=== PATIENT | male | born 2000 | race American Indian/Alaskan Native ===

== ENCOUNTER 2021-06-19 11:27 | Emergency (ER) | payer SELFPAY ==
[2021-06-19 11:54] VITALS: BP 144/81
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
--- NOTE | 2021-06-19 13:05 | Vascular Lab Report ---
VL venous duplex LE RT INDICATION / CLINICAL INFORMATION: pain. TECHNIQUE: Duplex doppler imaging was performed using venous compression and other maneuvers. COMPARISON: None available. FINDINGS: No venous thrombosis is identified within the visualized extremity vasculature. ADDITIONAL FINDINGS: None. IMPRESSION: 1. No sonographic evidence for DVT in the visualized right lower extremity vasculature. Signer Name: Ethan Hagen MD Signed: 06/19/2021 1:00 PM Workstation Name: [id number]
--- NOTE | 2021-06-20 08:49 | Electrocardiograph Report ---
[facility] Test Date: 2021-06-19 Test Time: 11:56:32 Pat Name: JAZ JONES Department: Room: Gender: M [employer] Technician: TV : 2000 Requested By: RICHI BESS Order Number: [id number] Reading MD: Mckay Yousif Measurements Intervals [place] Rate: 126 P: 61 NV: 166 QRS: 67 QRSD: 71 T: -15 QT: 293 QTc: 425 Interpretive Statements Sinus tachycardia Probable left atrial enlargement No previous ECG available for comparison Electronically Signed On 06-20-2021 8:48:56 EST by Mckay Yousif
== END 2021-06-19 14:21 | disposition home or self-care (01) ==
LOC: ED 11:27
DX: M79.604 Pain in right leg (principal)
CPT/HCPCS: 93005; 93010; 99283

== ENCOUNTER 2021-08-14 02:53 | Inpatient (IN) | payer SELFPAY ==
[2021-08-14] MEDS ORDERED: MORPHINE 4 MG/1 ML INJ IV ONE (02:58)
[2021-08-14] MEDS ORDERED: ONDANSETRON 4 MG/2 ML INJ IV ONE (02:59)
[2021-08-14 03:25] LABS: Mean Corpuscular HGB Conc 31 % (32-34); Mean Corpuscular Volume 78 fl (84-94); Platelet Count 387 K/mm3 (140-440); Red Blood Count 6.63 M/mm3 (3.65-5.03); Red Cell Distribution Width 13.5 % (13.2-15.2)
--- NOTE | 2021-08-14 03:47 | Cat Scan Report ---
CT ABDOMEN AND PELVIS WITHOUT CONTRAST INDICATION / CLINICAL INFORMATION: Abdominal pain. TECHNIQUE: All CT scans at this location are performed using CT dose reduction for ALARA by means of automated exposure control. COMPARISON: None available. FINDINGS: ABDOMEN: There is a dilated small bowel loop in the lower abdomen/upper pelvis. There is inflammation in the peritoneal fat in the lower abdomen and upper pelvis. I see no evidence of free air. The liver, spleen, gallbladder, bile ducts, pancreas, adrenal glands and kidneys are normal. No adeno heriberto is present. The lung bases are clear. PELVIS: The appendix is dilated and thick-walled measuring approximately 11 mm transverse. There is i ncreased intraluminal fluid. There is moderate soft tissue stranding in the periappendiceal fat with more diffuse inflammation in the surrounding peritoneal fat extending superiorly and anteriorly. Ther e is mild bowel wall thickening involving the base of the cecum. The terminal ileum is normal. I do n ot identify an abscess, appendicolith or extraluminal gas. The distal ureters, urinary bladder, prostate gland and seminal vesicles are normal. There is no evid ence of diverticulitis. No abnormal mass or fluid collection is seen. I do not identify a hernia. No acute osseous abnormality is present. IMPRESSION: 1. Moderate acute appendicitis without abscess. 2. Solitary dilated small bowel loop in the lower abdomen/upper pelvis is likely related to a localiz ed adynamic ileus. Signer Name: Tereso Butts MD Signed: 08/14/2021 3:42 AM Workstation Name: [id number]
[2021-08-14 03:49] LABS: Alanine Aminotransferase 19 units/L (7-56); Albumin 4.6 g/dL (3.9-5); BUN/Creatinine Ratio 14; Blood Urea Nitrogen 11 mg/dL (9-20); Hemolysis Index 34
[2021-08-14 03:50] LABS: Hematocrit 51.7 % (35.5-45.6); Hemoglobin 16.2 gm/dl (11.8-15.2)
[2021-08-14 04:12] LABS: RBC,Urine < 1.0 /HPF (0.0-6.0)
[2021-08-14 04:19] LABS: Bilirubin,Urine NEG (Negative); Color,Urine Colorless (Yellow)
[2021-08-14 04:20] LABS: Blood,Urine NEG (Negative); Protein,Urine <15 mg/dL mg/dL (Negative); Urobilinogen,Urine < 2.0 mg/dL (<2.0)
[2021-08-14] MEDS ORDERED: INSULIN REGULAR, HUMAN 100 UNITS/1 ML IV ONE (04:39)
[2021-08-14 05:08] LABS: Basophils % (Manual) 0 % (0.0-1.8); Hypochromasia 1+; Total Cells Counted 100
[2021-08-14 05:09] LABS: RBC Morphology Normal
[2021-08-14 05:10] LABS: Platelet Estimate Consistent w Auto
[2021-08-14] MEDS ORDERED: SODIUM CHLORIDE 0.9% 1000 ML 1,000 ML IV ONE (05:46)
[2021-08-14] MEDS ORDERED: DEXTROSE 50% IN WATER (25GM) 50 ML SYRINGE IV PRN ×3 (05:46→10:56)
[2021-08-14] MEDS ORDERED: INSULIN REGULAR, HUMAN 100 UNITS in SODIUM CHLORIDE 0.9% 99 ML IV SCH ×2 (06:00→07:00)
[2021-08-14] MEDS ORDERED: DEXTROSE 10% *Hypoglycemia IV PRN (06:00)
[2021-08-14] MEDS ORDERED: MORPHINE 2 MG/1 ML INJ IV PRN (06:09)
[2021-08-14] MEDS ORDERED: ONDANSETRON 4 MG/2 ML INJ IV PRN (06:09)
[2021-08-14] MEDS ORDERED: ALBUTEROL 2.5 MG/3 ML NEBU IH PRN (06:09)
[2021-08-14] MEDS ORDERED: ACETAMINOPHEN 325 MG TAB PO PRN (06:09)
--- NOTE | 2021-08-14 06:18 | History and Physical Report ---
History of Present Illness Date of examination: 08/14/21 Date of admission: 08/14/21 Chief complaint: Abdominal pain Nausea vomiting History of present illness: 20 years old male with history of diabetes was brought to the emergency room because of abdominal pain as stated with nausea and vomiting for the last 1 day as patient ran out of the medication for a month and a half. In the ER patient is found to have DKA. Patient blood glucose is 665. Anion gap 27 CO2 20 also patient WBC is 22.1. CT scan of the abdomen shows moderate acute appendicitis without abscess. Solitary dilated small bowel loops in the lower abdomen/upper pelvis is likely related to a localized adynamic ileus. Subsequently Case discussed with surgery. so we are going to admit the patient to the ICU. we will put the patient on insulin , IV fluid and consult surgery and critical care for further evaluation and management. Past History Past Medical History: diabetes Past Surgical History: No surgical history Family history: diabetes Medications and Allergies Allergies Allergy/AdvReac Type Severity Reaction Status Date / Time No Known Allergies Allergy Verified 06/19/21 11:54 Home Medications Medication Instructions Recorded Confirmed Last Taken Type Ibuprofen [Motrin] 600 mg PO Q8H PRN #30 tablet 06/19/21 Unknown Rx Active Meds: Active Medications Acetaminophen (Acetaminophen 325 Mg Tab) 650 mg PO Q4H PRN PRN Reason: Pain MILD(1-3)/Fever >100.5/GOMES Albuterol (Albuterol 2.5 Mg/3 Ml Nebu) 2.5 mg IH Q3HRT PRN PRN Reason: Shortness Of Breath Albuterol/Ipratropium (Ipratropium/Albuterol Sulfate 3 Ml Ampul.Neb) 1 ampul IH Q6HRT JAIME Dextrose (Dextrose 10% *Hypoglycemia) 0 ml IV DIRECT PRN; Protocol PRN Reason: Hypoglycemia Dextrose (Dextrose 50% In Water (25gm) 50 Ml Syringe) 0 ml IV Q30MIN PRN; Protocol PRN Reason: Hypoglycemia Insulin Human Regular 100 (units/ Sodium Chloride) 100 mls @ 1 mls/hr IV TITR JAIME; Protocol Sodium Chloride (Nacl 0.9% 1000 Ml) 1,000 mls @ 999 mls/hr IV BOLUS ONE Stop: 08/14/21 06:46 Insulin Human Regular 100 (units/ Sodium Chloride) 100 mls @ 1 mls/hr IV TITR JAIME; Protocol Ondansetron HCl (Ondansetron 4 Mg/2 Ml Inj) 4 mg IV Q8H PRN PRN Reason: Nausea And Vomiting Sodium Chloride (Sodium Chloride 0.9% 10 Ml Flush Syringe) 10 ml IV BID JAIME Sodium Chloride (Sodium Chloride 0.9% 10 Ml Flush Syringe) 10 ml IV PRN PRN PRN Reason: LINE FLUSH Review of Systems All systems: negative Gastrointestinal: abdominal pain, nausea, vomiting Exam - Constitutional Vitals: Temp Pulse Resp BP Pulse Ox 97.5 F L 146 H 16 107/75 99 08/14/21 03:14 08/14/21 03:14 08/14/21 03:14 08/14/21 03:14 08/14/21 03:14 General appearance: Present: mild distress - EENT Eyes: Present: PERRL ENT: hearing intact, clear oral mucosa - Neck Neck: Present: supple, normal ROM - Respiratory Respiratory effort: normal Respiratory: bilateral: diminished - Cardiovascular Heart Sounds: Present: S1 & S2. Absent: rub, click - Extremities Extremities: pulses symmetrical, No edema Peripheral Pulses: within normal limits - Abdominal General gastrointestinal: Present: soft, non-tender, non-distended, normal bowel sounds Male genitourinary: Present: normal - Integumentary Integumentary: Present: clear, warm, dry - Musculoskeletal Musculoskeletal: gait normal, strength equal bilaterally - Psychiatric Psychiatric: appropriate mood/affect, intact judgment & insight - Neurologic Neurologic: CNII-XII intact, moves all extremities Results - Labs CBC & Chem 7: 08/14/21 03:11 08/14/21 05:54 Labs: Laboratory Last Values WBC 22.1 K/mm3 (4.5-11.0) H 08/14/21 03:11 RBC 6.63 M/mm3 (3.65-5.03) H 08/14/21 03:11 Hgb 16.2 gm/dl (11.8-15.2) H 08/14/21 03:11 Hct 51.7 % (35.5-45.6) H 08/14/21 03:11 MCV 78 fl (84-94) L 08/14/21 03:11 MCH 24 pg (28-32) L 08/14/21 03:11 MCHC 31 % (32-34) L 08/14/21 03:11 RDW 13.5 % (13.2-15.2) 08/14/21 03:11 Plt Count 387 K/mm3 (140-440) 08/14/21 03:11 Add Manual Diff Complete 08/14/21 03:11 Total Counted 100 08/14/21 03:11 Seg Neuts % (Manual) 82.0 % (40.0-70.0) H 08/14/21 03:11 Band Neutrophils % 0 % 08/14/21 03:11 Lymphocytes % (Manual) 10.0 % (13.4-35.0) L 08/14/21 03:11 Reactive Lymphs % (Man) 0 % 08/14/21 03:11 Monocytes % (Manual) 7.0 % (0.0-7.3) 08/14/21 03:11 Eosinophils % (Manual) 1.0 % (0.0-4.3) 08/14/21 03:11 Basophils % (Manual) 0 % (0.0-1.8) 08/14/21 03:11 Metamyelocytes % 0 % 08/14/21 03:11 Myelocytes % 0 % 08/14/21 03:11 Promyelocytes % 0 % 08/14/21 03:11 Blast Cells % 0 % 08/14/21 03:11 Nucleated RBC % Not Reportable 08/14/21 03:11 Seg Neutrophils # Man 18.1 K/mm3 (1.8-7.7) H 08/14/21 03:11 Band Neutrophils # 0.0 K/mm3 08/14/21 03:11 Lymphocytes # (Manual) 2.2 K/mm3 (1.2-5.4) 08/14/21 03:11 Abs React Lymphs (Man) 0.0 K/mm3 08/14/21 03:11 Monocytes # (Manual) 1.5 K/mm3 (0.0-0.8) H 08/14/21 03:11 Eosinophils # (Manual) 0.2 K/mm3 (0.0-0.4) 08/14/21 03:11 Basophils # (Manual) 0.0 K/mm3 (0.0-0.1) 08/14/21 03:11 Metamyelocytes # 0.0 K/mm3 08/14/21 03:11 Myelocytes # 0.0 K/mm3 08/14/21 03:11 Promyelocytes # 0.0 K/mm3 08/14/21 03:11 Blast Cells # 0.0 K/mm3 08/14/21 03:11 WBC Morphology Not Reportable 08/14/21 03:11 Hypersegmented Neuts Not Reportable 08/14/21 03:11 Hyposegmented Neuts Not Reportable 08/14/21 03:11 Hypogranular Neuts Not Reportable 08/14/21 03:11 Smudge Cells Not Reportable 08/14/21 03:11 Toxic Granulation Not Reportable 08/14/21 03:11 Toxic Vacuolation Not Reportable 08/14/21 03:11 Dohle Bodies Not Reportable 08/14/21 03:11 Pelger-Huet Anomaly Not Reportable 08/14/21 03:11 Dario Rods Not Reportable 08/14/21 03:11 Platelet Estimate Consistent w auto 08/14/21 03:11 Clumped Platelets Not Reportable 08/14/21 03:11 Plt Clumps, EDTA Not Reportable 08/14/21 03:11 Large Platelets Not Reportable 08/14/21 03:11 Giant Platelets Not Reportable 08/14/21 03:11 Platelet Satelliting Not Reportable 08/14/21 03:11 Plt Morphology Comment Not Reportable 08/14/21 03:11 RBC Morphology Normal 08/14/21 03:11 Dimorphic RBCs Not Reportable 08/14/21 03:11 Polychromasia Not Reportable 08/14/21 03:11 Hypochromasia 1+ 08/14/21 03:11 Poikilocytosis Not Reportable 08/14/21 03:11 Anisocytosis Not Reportable 08/14/21 03:11 Microcytosis Not Reportable 08/14/21 03:11 Macrocytosis Not Reportable 08/14/21 03:11 Spherocytes Not Reportable 08/14/21 03:11 Pappenheimer Bodies Not Reportable 08/14/21 03:11 Sickle Cells Not Reportable 08/14/21 03:11 Target Cells Not Reportable 08/14/21 03:11 Tear Drop Cells Not Reportable 08/14/21 03:11 Ovalocytes Not Reportable 08/14/21 03:11 Helmet Cells Not Reportable 08/14/21 03:11 [place] Bodies Not Reportable 08/14/21 03:11 [place] Rings Not Reportable 08/14/21 03:11 [place] Cells Not Reportable 08/14/21 03:11 Bite Cells Not Reportable 08/14/21 03:11 Crenated Cell Not Reportable 08/14/21 03:11 Elliptocytes Not Reportable 08/14/21 03:11 Acanthocytes (Spur) Not Reportable 08/14/21 03:11 Rouleaux Not Reportable 08/14/21 03:11 Hemoglobin C Crystals Not Reportable 08/14/21 03:11 Schistocytes Not Reportable 08/14/21 03:11 Malaria parasites Not Reportable 08/14/21 03:11 Anton Bodies Not Reportable 08/14/21 03:11 Hem Pathologist Commnt No 08/14/21 03:11 VBG pH 7.215 (7.320-7.420) L 08/14/21 04:48 Sodium 131 mmol/L (137-145) L 08/14/21 03:11 Potassium 4.0 mmol/L (3.6-5.0) 08/14/21 03:11 Chloride 88.3 mmol/L (98-107) L 08/14/21 03:11 Carbon Dioxide 20 mmol/L (22-30) L 08/14/21 03:11 Anion Gap 27 mmol/L 08/14/21 03:11 BUN 11 mg/dL (9-20) 08/14/21 03:11 Creatinine 0.8 mg/dL (0.8-1.3) 08/14/21 03:11 Estimated GFR > 60 ml/min 08/14/21 03:11 BUN/Creatinine Ratio 14 % 08/14/21 03:11 Glucose 665 mg/dL (75-100) H* 08/14/21 03:11 Calcium 10.0 mg/dL (8.4-10.2) 08/14/21 03:11 Total Bilirubin 0.70 mg/dL (0.1-1.2) 08/14/21 03:11 AST 10 units/L (5-40) 08/14/21 03:11 ALT 19 units/L (7-56) 08/14/21 03:11 Alkaline Phosphatase 96 units/L (35-129) 08/14/21 03:11 Total Protein 8.0 g/dL (6.3-8.2) 08/14/21 03:11 Albumin 4.6 g/dL (3.9-5) 08/14/21 03:11 Albumin/Globulin Ratio 1.4 % 08/14/21 03:11 Urine Color Colorless (Yellow) 08/14/21 Unknown Urine Turbidity Clear (Clear) 08/14/21 Unknown Urine pH 6.0 (5.0-7.0) 08/14/21 Unknown Ur Specific [place] 1.010 (1.003-1.030) 08/14/21 Unknown Urine Protein <15 mg/dl mg/dL (Negative) 08/14/21 Unknown Urine Glucose (UA) Trace mg/dL (Negative) 08/14/21 Unknown Urine Ketones Trace mg/dL (Negative) 08/14/21 Unknown Urine Blood Neg (Negative) 08/14/21 Unknown Urine Nitrite Neg (Negative) 08/14/21 Unknown Ur Reducing Substances Not Reportable 08/14/21 Unknown Urine Bilirubin Neg (Negative) 08/14/21 Unknown Urine Ictotest Not Reportable 08/14/21 Unknown Urine Urobilinogen < 2.0 mg/dL (<2.0) 08/14/21 Unknown Ur Leukocyte Esterase Neg (Negative) 08/14/21 Unknown Urine WBC (Auto) 1.0 /HPF (0.0-6.0) 08/14/21 Unknown Urine RBC (Auto) < 1.0 /HPF (0.0-6.0) 08/14/21 Unknown U Epithel Cells (Auto) < 1.0 /HPF (0-13.0) 08/14/21 Unknown - Imaging and Cardiology CT scan - abdomen: report reviewed Assessment and Plan VTE prophylaxis?: Chemical Plan of care discussed with patient/family: Yes - Patient Problems (1) Diabetic ketoacidosis Status: Acute Plan to address problem: Admit the patient to the ICU. Half-normal saline at the rate of 125 cc/h. Insulin drip as per protocol. Serial BMP. Reconsult critical care evaluation. Recheck BMP in the morning. Diabetic education (2) Appendicitis Status: Acute Plan to address problem: NPO. Half-normal saline at the rate of 125 cc/h. Zosyn 4.5 g IV every 8 hours. Metronidazole 500 mg IV every 8 hours. Will consult surgery for evaluation. Recheck CBC BMP in the morning (3) Ileus Status: Acute Plan to address problem: NPO. Half-normal saline at the rate of 125 cc/h. Zosyn 4.5 g IV every 8 hours. Will consult surgery for evaluation. Recheck CBC BMP in the morning (4) Diabetes Status: Acute Plan to address problem: Patient is on IV fluid, insulin drip as per protocol. Reconsult diabetic education. (5) Leukocytosis Status: Acute Plan to address problem: Zosyn 4.5 g IV every 8 hours. Metronidazole 500 mg IV every 8 hours. will consult surgery for evaluation. Recheck CBC BMP in the morning (6) DVT prophylaxis Status: Acute Plan to address problem: Heparin 5000 units subcu every 12 hours for DVT prophylaxis. Pepcid 20 mg IV every 12 hours for GI prophylaxis. Patient is a full code.
[2021-08-14 06:24] LABS: Blood Urea Nitrogen 10 mg/dL (9-20); Calcium 9.6 mg/dL (8.4-10.2); Hemolysis Index 9
[2021-08-14 06:25] LABS: BUN/Creatinine Ratio 17
--- NOTE | 2021-08-14 06:33 | Emergency Department Report ---
ED General Adult HPI - General Chief complaint: Abdominal Pain Stated complaint: SEVERE ABD PAIN Time Seen by Provider: 08/14/21 05:46 Source: patient Mode of arrival: Ambulatory Limitations: No Limitations - History of Present Illness Initial comments: 20-year-old [place] male with a history of insulin-dependent diabetes who has been out of his medication for the last month to month and half presents emerge department complaining of 1 day history of evolving nausea with occasional vomiting and mid abdominal pain that radiates across the lower abdomen. Reports no hemoptysis symptoms hematochezia, dysuria no hematuria no fever, chills, sweats. Does experience some lightheadedness and weakness. -: Gradual Severity scale (0 -10): 6 Improves with: none Worsens with: movement - Related Data Previous Rx's Medication Instructions Recorded Last Taken Type Ibuprofen [Motrin] 600 mg PO Q8H PRN #30 tablet 06/19/21 Unknown Rx Allergies Allergy/AdvReac Type Severity Reaction Status Date / Time No Known Allergies Allergy Verified 06/19/21 11:54 ED Review of Systems ROS: Stated complaint: SEVERE ABD PAIN Other details as noted in HPI Comment: All other systems reviewed and negative ED Past Medical Hx - Past Medical History Hx Diabetes: Yes - Medications Home Medications: Home Medications Medication Instructions Recorded Confirmed Last Taken Type Ibuprofen [Motrin] 600 mg PO Q8H PRN #30 tablet 06/19/21 Unknown Rx ED Physical Exam - General Limitations: No Limitations General appearance: alert, lethargic - Head Head exam: Present: atraumatic, normocephalic - Eye Eye exam: Present: normal appearance, PERRL, EOMI - ENT ENT exam: Present: mucous membranes moist - Neck Neck exam: Present: normal inspection - Respiratory Respiratory exam: Present: normal lung sounds bilaterally. Absent: respiratory distress - Cardiovascular Cardiovascular Exam: Present: regular rate, normal rhythm. Absent: systolic murmur, diastolic murmur, rubs, gallop - GI/Abdominal GI/Abdominal exam: Present: soft, tenderness, normal bowel sounds, other (Tenderness to left lower quadrant and). Absent: guarding, rebound - Rectal Rectal exam: Present: deferred - Extremities Exam Extremities exam: Present: normal inspection, normal capillary refill - Back Exam Back exam: Present: normal inspection. Absent: CVA tenderness (R), CVA tenderness (L) - Neurological Exam Neurological exam: Present: alert, oriented X3, CN II-XII intact, normal gait - Psychiatric Psychiatric exam: Present: normal affect, normal mood - Skin Skin exam: Present: warm, dry, intact, normal color. Absent: rash, cyanosis, erythema, urticaria ED Course Vital Signs 08/14/21 03:14 Temperature 97.5 F L Pulse Rate 146 H Respiratory 16 Rate Blood Pressure 107/75 O2 Sat by Pulse 99 Oximetry ED Medical Decision Making - Lab Data Result diagrams: 08/14/21 03:11 08/14/21 05:54 - Radiology Data Radiology results: report reviewed [facility] [address] [place] [address] Cat Scan Report Signed Patient: JAZ GARCIA MR#: [id number] 37 : 2000 Acct:[id number] Age/Sex: 20 / M ADM Date: 08/14/21 Loc: ED Attending Dr: Ordering Physician: PILAR MORALES MD Date of Service: 08/14/21 Procedure(s): CT abdomen pelvis wo con Accession Number(s): [id number] cc: ED MD CARMEN CT ABDOMEN AND PELVIS WITHOUT CONTRAST INDICATION / CLINICAL INFORMATION: Abdominal pain. TECHNIQUE: All CT scans at this location are performed using CT dose reduction for ALARA by means of automated exposure control. COMPARISON: None available. FINDINGS: ABDOMEN: There is a dilated small bowel loop in the lower abdomen/upper pelvis. There is inflammation in the peritoneal fat in the lower abdomen and upper pelvis. I see no evidence of free air. The liver, spleen, gallbladder, bile ducts, pancreas, adrenal glands and kidneys are normal. No adenopathy is present. The lung bases are clear. PELVIS: The appendix is dilated and thick-walled measuring approximately 11 mm transverse. There is increased intraluminal fluid. There is moderate soft tissue stranding in the periappendiceal fat with more diffuse inflammation in the surrounding peritoneal fat extending superiorly and anteriorly. There is mild bowel wall thickening involving the base of the cecum. The terminal ileum is normal. I do not identify an abscess, appendicolith or extraluminal gas. The distal ureters, urinary bladder, prostate gland and seminal vesicles are normal. There is no evidence of diverticulitis. No abnormal mass or fluid collection is seen. I do not identify a hernia. No acute osseous abnormality is present. IMPRESSION: 1. Moderate acute appendicitis without abscess. 2. Solitary dilated small bowel loop in the lower abdomen/upper pelvis is likely related to a localized adynamic ileus. Signer Name: Tereso Butts MD Signed: 08/14/2021 3:42 AM Workstation Name: [id number] Transcribed By: RT Dictated By: Tereso Butts MD Electronically Authenticated By: Tereso Butts MD Signed Date/Time: 08/14/21341 DD/ 5 TD/TT: Print - Medical Decision Making 20-year-old male with insulin-dependent diabetes who has been out of his medication for the last month and a half presents emergency department complaining of nausea vomiting abdominal pain found to be in DKA with blood sug ar of 600+ he was started on insulin bolus followed by an insulin drip potassium was and normal range.. Also he was experiencing some issues with abdominal pain and CT scan did reveal a moderate appendicitis. Case was discussed with the general surgeon Dr. Monterroso who advised the plan to attempt to treat medically given his DKA history and need for admission to the ICU. We will start him on Zosyn and Flagyl if available as there was a Flagyl shortage at this present time. Case was discussed with hospitalist whom is aware of the of the findings of DKA and an appendicitis and will admit Mr. Garcia in consult with general surgeon Critical care attestation.: If time is entered above; I have spent that time in minutes in the direct care of this critically ill patient, excluding procedure time. ED Disposition Clinical Impression: Appendicitis, acute, DKA (diabetic ketoacidosis) Disposition: 09 ADMITTED INPATIENT Is pt being admited?: Yes Does the pt Need Aspirin: No Condition: Stable Instructions: Diabetic Ketoacidosis (ED)
[2021-08-14] MEDS ORDERED: D5W/0.45% NACL/KCL 20 MEQ 20 MEQ/1,000 ML BAG IV SCH (07:00)
[2021-08-14] MEDS ORDERED: SODIUM CHLORIDE 0.45% 1000 ML 1,000 ML IV SCH (07:00)
[2021-08-14] MEDS ORDERED: PIPERACIL/TAZOBACTA 4.5/NS 100 4.5 GM/100 ML VIAL IV SCH (07:00)
[2021-08-14] MEDS ORDERED: POTASSIUM CHLORIDE 10 MEQ 10 MEQ/100 ML BAG IV PRN ×2 (07:00)
[2021-08-14] MEDS ORDERED: LACTATED RINGERS 1,000 ML IV ONE (07:30)
--- NOTE | 2021-08-14 07:47 | Consultation ---
History of Present Illness Consult date: 08/14/21 Reason for consult: abdominal pain - History of present illness History of present illness: 20 years old male with history of diabetes was brought to the emergency room because of abdominal pain as stated with nausea and vomiting for the last 1 day as patient ran out of the medication for a month and a half. In the ER patient is found to have DKA. Patient blood glucose is 665. Anion gap 27 CO2 20 also patient WBC is 22.1. CT scan of the abdomen shows moderate acute appendicitis without abscess. Solitary dilated small bowel loops in the lower abdomen/upper pelvis is likely related to a localized adynamic ileus. Subsequently Case discussed with ED pt will be admitted to hospitalist. Admit the patient to the ICU. Correct DKA with the patient on insulin , IV fluid and consider surgery later today and critical care for further evaluation and management. Past History Past Medical History: diabetes Past Surgical History: No surgical history Family history: diabetes Medications and Allergies Allergies Allergy/AdvReac Type Severity Reaction Status Date / Time No Known Allergies Allergy Verified 08/14/21 07:45 Home Medications Medication Instructions Recorded Confirmed Last Taken Type Ibuprofen [Motrin] 600 mg PO Q8H PRN #30 tablet 06/19/21 Unknown Rx Active Meds: Active Medications Acetaminophen (Acetaminophen 325 Mg Tab) 650 mg PO Q4H PRN PRN Reason: Pain MILD(1-3)/Fever >100.5/GOMES Albuterol (Albuterol 2.5 Mg/3 Ml Nebu) 2.5 mg IH Q3HRT PRN PRN Reason: Shortness Of Breath Albuterol/Ipratropium (Ipratropium/Albuterol Sulfate 3 Ml Ampul.Neb) 1 ampul IH Q6HRT JAIME Dextrose (Dextrose 10% *Hypoglycemia) 0 ml IV DIRECT PRN; Protocol PRN Reason: Hypoglycemia Famotidine (Famotidine 20 Mg/2 Ml Inj) 20 mg IV BID JAIME Heparin Sodium (Porcine) (Heparin 5,000 Unit/1 Ml Vial) 5,000 unit SUB-Q Q12HR JAIME Hydromorphone HCl (Hydromorphone 1 Mg/1 Ml Inj) 0.5 mg IV Q3H PRN PRN Reason: Pain , Severe (7-10) Insulin Human Regular 100 (units/ Sodium Chloride) 100 mls @ 1 mls/hr IV TITR JAIME; Protocol Sodium Chloride (Nacl 0.45% 1000 Ml) 1,000 mls @ 125 mls/hr IV DIRECT JAIME Potassium Chloride/Dextrose/Sod Cl (D5w/0.45% Nacl/Kcl 20 Meq) 20 meq in 1,000 mls @ 125 mls/hr IV DIRECT JAIME Potassium Chloride (Kcl 10meq/100ml) 10 meq in 100 mls @ 100 mls/hr IV Q1H PRN PRN Reason: SEE PROTOCOL Potassium Chloride (Kcl 10meq/100ml) 10 meq in 100 mls @ 100 mls/hr IV Q1H PRN PRN Reason: SEE PROTOCOL Piperacillin Sod/Tazobactam Sod (Zosyn/Ns 4.5gm/100ml) 4.5 gm in 100 mls @ 200 mls/hr IV Q8HR JAIME; Protocol Metronidazole (Flagyl 500 Mg/100 Ml) 500 mg in 100 mls @ 100 mls/hr IV Q8H JAIME; Protocol Lactated Ringer's (Lactated Ringers) 1,000 mls @ 999 mls/hr IV BOLUS ONE Stop: 08/14/21 08:30 Morphine Sulfate (Morphine 2 Mg/1 Ml Inj) 2 mg IV Q4H PRN PRN Reason: Pain, Moderate (4-6) Ondansetron HCl (Ondansetron 4 Mg/2 Ml Inj) 4 mg IV Q8H PRN PRN Reason: Nausea And Vomiting Sodium Chloride (Sodium Chloride 0.9% 10 Ml Flush Syringe) 10 ml IV BID JAIME Sodium Chloride (Sodium Chloride 0.9% 10 Ml Flush Syringe) 10 ml IV PRN PRN PRN Reason: LINE FLUSH Exam Vital Signs Temp Pulse Resp BP Pulse Ox 97.5 F L 146 H 16 107/75 99 08/14/21 03:14 08/14/21 03:14 08/14/21 03:14 08/14/21 03:14 08/14/21 03:14 - General physical appearance Positive: well developed, moderate distress - Eyes Positive: PERRL - Neck Positive: no masses, no bruits, trachea midline - Respiratory Positive: normal expansion - Cardiovascular Rhythm: regular - Abdomen Abdomen: Present: soft, tender, guarding. Absent: distended, masses - Integumentary no rash - Neurologic Neurologic: alert and oriented to time, place and person, motor strength and sensation are grossly intact, CN II-XII intact Results - Labs 08/14/21 03:11 08/14/21 05:54 Abnormal lab results 08/14/21 08/14/21 08/14/21 Range/Units 03:11 03:11 04:48 WBC 22.1 H (4.5-11.0) K/mm3 RBC 6.63 H (3.65-5.03) M/mm3 Hgb 16.2 H (11.8-15.2) gm/dl Hct 51.7 H (35.5-45.6) % MCV 78 L (84-94) fl MCH 24 L (28-32) pg MCHC 31 L (32-34) % Seg Neuts % (Manual) 82.0 H (40.0-70.0) % Lymphocytes % (Manual) 10.0 L (13.4-35.0) % Seg Neutrophils # Man 18.1 H (1.8-7.7) K/mm3 Monocytes # (Manual) 1.5 H (0.0-0.8) K/mm3 VBG pH 7.215 L (7.320-7.420) Sodium 131 L (137-145) mmol/L Chloride 88.3 L (98-107) mmol/L Carbon Dioxide 20 L (22-30) mmol/L Creatinine (0.8-1.3) mg/dL Glucose 665 H* (75-100) mg/dL 08/14/21 Range/Units 05:54 WBC (4.5-11.0) K/mm3 RBC (3.65-5.03) M/mm3 Hgb (11.8-15.2) gm/dl Hct (35.5-45.6) % MCV (84-94) fl MCH (28-32) pg MCHC (32-34) % Seg Neuts % (Manual) (40.0-70.0) % Lymphocytes % (Manual) (13.4-35.0) % Seg Neutrophils # Man (1.8-7.7) K/mm3 Monocytes # (Manual) (0.0-0.8) K/mm3 VBG pH (7.320-7.420) Sodium 133 L (137-145) mmol/L Chloride 92.5 L (98-107) mmol/L Carbon Dioxide 21 L (22-30) mmol/L Creatinine 0.6 L (0.8-1.3) mg/dL Glucose 455 H (75-100) mg/dL Diabetes panel 08/14/21 08/14/21 Range/Units 03:11 05:54 Sodium 131 L 133 L (137-145) mmol/L Potassium 4.0 4.9 D (3.6-5.0) mmol/L Chloride 88.3 L 92.5 L (98-107) mmol/L Carbon Dioxide 20 L 21 L (22-30) mmol/L BUN 11 10 (9-20) mg/dL Creatinine 0.8 0.6 L (0.8-1.3) mg/dL Glucose 665 H* 455 H (75-100) mg/dL Calcium 10.0 9.6 (8.4-10.2) mg/dL AST 10 (5-40) units/L ALT 19 (7-56) units/L Alkaline Phosphatase 96 (35-129) units/L Total Protein 8.0 (6.3-8.2) g/dL Albumin 4.6 (3.9-5) g/dL Calcium panel 08/14/21 08/14/21 08/14/21 Range/Units 03:11 05:54 05:54 Calcium 10.0 9.6 (8.4-10.2) mg/dL Phosphorus 4.40 (2.5-4.5) mg/dL Albumin 4.6 (3.9-5) g/dL Pituitary panel 08/14/21 08/14/21 Range/Units 03:11 05:54 Sodium 131 L 133 L (137-145) mmol/L Potassium 4.0 4.9 D (3.6-5.0) mmol/L Chloride 88.3 L 92.5 L (98-107) mmol/L Carbon Dioxide 20 L 21 L (22-30) mmol/L BUN 11 10 (9-20) mg/dL Creatinine 0.8 0.6 L (0.8-1.3) mg/dL Glucose 665 H* 455 H (75-100) mg/dL Calcium 10.0 9.6 (8.4-10.2) mg/dL Adrenal panel 08/14/21 08/14/21 Range/Units 03:11 05:54 Sodium 131 L 133 L (137-145) mmol/L Potassium 4.0 4.9 D (3.6-5.0) mmol/L Chloride 88.3 L 92.5 L (98-107) mmol/L Carbon Dioxide 20 L 21 L (22-30) mmol/L BUN 11 10 (9-20) mg/dL Creatinine 0.8 0.6 L (0.8-1.3) mg/dL Glucose 665 H* 455 H (75-100) mg/dL Calcium 10.0 9.6 (8.4-10.2) mg/dL Total Bilirubin 0.70 (0.1-1.2) mg/dL AST 10 (5-40) units/L ALT 19 (7-56) units/L Alkaline Phosphatase 96 (35-129) units/L Total Protein 8.0 (6.3-8.2) g/dL Albumin 4.6 (3.9-5) g/dL Assessment and Plan 20 yo with dm an ddka. admitting glucose greater than 600. Will take most of today to correct glucose and rehydrate. Plan Lap appy later today.
[2021-08-14] MEDS: HYDROmorphone 1 MG/1 ML INJ IV PRN ×5 (07:51→21:22)
[2021-08-14] MEDS ORDERED: IPRATROPIUM/ALBUTEROL SULFATE 3 ML AMPUL.NEB IH SCH (08:00)
[2021-08-14] MEDS ORDERED: metroNIDAZOLE/NS 500 MG/100 ML 500 MG/100 ML BAG IV SCH (08:00)
[2021-08-14] MEDS ORDERED: HYDROmorphone 1 MG/1 ML INJ IV ONE (08:35)
[2021-08-14 10:07] LABS: Blood Urea Nitrogen 9 mg/dL (9-20); Calcium 9.1 mg/dL (8.4-10.2); Hemolysis Index 3
[2021-08-14 10:10] LABS: BUN/Creatinine Ratio 18
--- NOTE | 2021-08-14 11:25 | Anesthesia Consultation ---
Anesthesia Consult and Med Hx Date of service: 08/14/21 - Airway Anesthetic Teeth Evaluation: Good ROM Head & Neck: Adequate Mental/Hyoid Distance: Adequate Mallampati Class: Class I Intubation Access Assessment: Probably Good - Pulmonary Exam CTA: Yes - Cardiac Exam Cardiac Exam: RRR - Pre-Operative Health Status ASA Pre-Surgery Classification: ASA1, ASA3 Proposed Anesthetic Plan: General - Pulmonary Hx Smoking: No Hx Respiratory Symptoms: No - Cardiovascular System Hx Hypertension: No Hx Heart Attack/AMI: No Hx Cardia Arrhythmia: No - Central Nervous System Hx Neuromuscular Disorder: No - Gastrointestinal Hx Gastroesophageal Reflux Disease: No - Endocrine Hx Renal Disease: No Hx Liver Disease: No Hx Insulin Dependent Diabetes: Yes Hx Thyroid Disease: No - Hematic Hx Anemia: No - Other Systems Hx Alcohol Use: No - Additional Comments Anesthesia Medical History Comments: No GAC. No FHAC. Patient reports being out of insulin due to costs for several days. Admission FBS >600. Currently 119 m g/dl per Ina Wagoner RN.
--- NOTE | 2021-08-14 11:26 | Anesthesia Day of Surgery ---
Anesthesia Day of Surgery - Day of Surgery Patient H&P Reviewed: Yes Patient is NPO: Yes Abiel's Test: N/A
[2021-08-14] MEDS ORDERED: LIDOCAINE (1%) 10 MG/1 ML VIAL 20 ML MDV ONE (11:32)
[2021-08-14] MEDS ORDERED: BUPIVACAINE/PF (0.5%) 5 MG/1 ML 30 ML VIAL INFILTRATI ONE ×2 (11:32→12:51)
[2021-08-14] MEDS: FAMOTIDINE 20 MG/2 ML INJ IV SCH ×2 (11:41→21:22)
[2021-08-14] MEDS: HEPARIN 5,000 UNIT/1 ML VIAL SUB-Q SCH ×2 (11:42→21:22)
[2021-08-14] MEDS: INSULIN REGULAR, HUMAN 100 UNITS/1 ML SUB-Q SCH ×2 (11:45→18:00)
[2021-08-14] MEDS: D5W/0.45% NACL 1,000 ML IV SCH ×2 (11:45→21:21)
[2021-08-14] MEDS ORDERED: INSULIN GLARGINE 100 UNITS/ML SUB-Q SCH (12:00)
[2021-08-14] MEDS ORDERED: LIDOCAINE MPF (2%) 20 MG/1 ML VIAL 5 ML ONE (12:04)
[2021-08-14] MEDS ORDERED: HYDROmorphone 1 MG/1 ML INJ ONE (12:04)
[2021-08-14] MEDS ORDERED: propofoL 200 MG/20 ML VIAL IV ONE (12:04)
[2021-08-14] MEDS ORDERED: MIDAZOLAM 2 MG/2 ML INJ ONE (12:06)
[2021-08-14] MEDS ORDERED: ROCURONIUM 50 MG/5 ML INJ IV ONE (12:09)
[2021-08-14] MEDS ORDERED: WATER FOR IRRIG STERILE 1,500 ML BOTTLE IR ONE (12:51)
[2021-08-14] MEDS ORDERED: SODIUM CHLORIDE 0.9% IRR 1,500 ML BOTTLE IR ONE (12:51)
[2021-08-14] MEDS ORDERED: SODIUM CHLORIDE 0.9% IRRIG SOLN 2000 ML IR ONE (12:51)
[2021-08-14] MEDS ORDERED: LIDOCAINE (1%) 10 MG/1 ML VIAL 20 ML MDV INFILTRATI ONE (12:51)
[2021-08-14] MEDS ORDERED: NALOXONE 0.4 MG/1 ML INJ IV PRN (12:54)
[2021-08-14] MEDS ORDERED: HYDROmorphone 1 MG/1 ML INJ IV PRN (12:54)
[2021-08-14] MEDS ORDERED: MEPERIDINE 25 MG/1 ML INJ IV PRN (12:54)
[2021-08-14] MEDS ORDERED: KETOROLAC 30 MG/1 ML INJ ONE (14:04)
[2021-08-14] MEDS ORDERED: LACTATED RINGERS 2,000 ML ONE (14:04)
[2021-08-14] MEDS ORDERED: PHENYLEPHRINE/NS 1,000 MCG/10 ML SYRINGE (OR USE) IV ONE (14:04)
[2021-08-14] MEDS ORDERED: ONDANSETRON 4 MG/2 ML INJ ONE (14:04)
[2021-08-14] MEDS ORDERED: GLYCOPYRROLATE 0.4 MG/2 ML INJ ONE (14:04)
[2021-08-14] MEDS ORDERED: NEOSTIGMINE 10MG/10 ML INJ MDV ONE (14:04)
[2021-08-14] MEDS ORDERED: INSULIN REGULAR, HUMAN 100 UNITS/1 ML SUB-Q ONE (14:32)
--- NOTE | 2021-08-14 14:39 | Event Note ---
Date: 08/14/21 This is a 20-year-old male with insulin-dependent diabetes, marijuana smoker , oxycodone use who presented to emergency department on 08/14 with complaints of abdominal pain, nausea and vomiting for the past day and he stated that he ran out of his medication for a month and a half. In the emergency department lab work was consistent with DKA with a blood glucose of 665, anion gap of 27, CO2 of 20. He also had leukocytosis. CT scan of his abdomen showed moderate acute appendicitis without abscess and solitary dilated small bowel loops in the lower abdomen/upper pelvis likely related to localized adynamic ileus. Surgery was consulted and patient was admitted to the hospital service to the ICU on DKA protocol. CCM was also consulted. 08/14: Patient scheduled for OR today. AG has closed and patient has been transitioned to long-acting insulin however remains n.p.o. for surgery. He will remain on IV fluids until okayed by surgery for p.o. intake. Assessment and plan Neuro: NAD, h/o marijuana and oxycodone use -Avoid delirium -Reorientation as needed -Maintain sleep-wake cycle -As needed analgesia -Drug abuse cessation strongly encouraged Cardiac: ST -Blood pressure monitoring per protocol Respiratory: NAD -Pulmonary hygiene -Supplemental oxygen as needed -SPO2 monitoring GI: Appendicitis, ileus -24 hours + 1612.9 -PPI -CC diet once able to take p.o. -BR once able to take p.o. -General surgery consulted, patient recommendations -S/p laparoscopic appendectomy on 08/14 : Pseudohyponatremia, high anion gap metabolic acidosis -Renally dose medications -Avoid nephrotoxic medications -Trend BMP ID: NAD -Infectious disease consulted, appreciate recommendation -S/p antibiotic therapy with Zosyn, Flagyl (discontinued today) -f/u blood culture -Monitor WBC and temperature curve Endo: DKA, h/o IDDM -s/p DKA protocol -Transitioned to long-acting insulin, titrate as needed -SSI -Avoid hypoglycemia -SSI -Accu-Cheks q. every 6 while NPO -MIVF while n.p.o. -Of note patient is uninsured and takes 70/30 and short acting insulin, currently on sliding scale per self Heme: Leukocytosis -Trend CBC -Transfuse hemoglobin less than 7 -Monitor for signs of bleeding -SCDs to BLE while in bed Disposition: Transfer to floor The high probability of a clinically significant, sudden or life threatening deterioration of the [endo/abd] system(s) required my full and direct attention, intervention and personal management. The aggregate critical care time was [60] minutes. This time is in addition to time spent performing reported procedures but includes the following: [x] Data Review and interpretation [x] Patient assessment and monitoring of vital signs [x] Documentation [x] Medication orders and management
--- NOTE | 2021-08-14 15:12 | Post Anesthesia Evaluation ---
- Post Anesthesia Evaluation Patient Participated: Yes Airway Patent: Yes Stable Respiratory Function: Yes Nausea/Vomiting: Yes Temp > 96.8F: Yes Pain Manageable: Yes Adequeate Hydration: Yes Anesthesia Complications: No
[2021-08-14 23:34] LABS: Blood Urea Nitrogen 9 mg/dL (9-20); Calcium 8.3 mg/dL (8.4-10.2); Hemolysis Index 6
[2021-08-14 23:37] LABS: BUN/Creatinine Ratio 23
[2021-08-15] MEDS: INSULIN REGULAR, HUMAN 100 UNITS/1 ML SUB-Q SCH ×4 (01:25→22:53)
[2021-08-15] MEDS: HYDROmorphone 1 MG/1 ML INJ IV PRN ×6 (01:29→22:52)
--- NOTE | 2021-08-15 06:47 | Progress Note ---
Assessment and Plan Patient postop day #1 status post laparoscopic appendectomy for moderately advanced appendicitis. He also was admitted with poorly controlled diabetes. Continue observation through today correction of metabolic abnormalities and IV antibiotics. Obtain stool for culture sensitivity and C. difficile toxin assay. Potential discharge in morning tomorrow. Subjective Date of service: 08/15/21 Narrative: Patient is status post a laparoscopic appendectomy. He feels well and is tolerating a regular diet. He complains of diarrhea. He is noted that he had diarrhea for a month. He has never had a stool culture to work this up. Objective Vital Signs - 12hr 08/14/21 08/14/21 08/14/21 20:00 21:15 21:19 Temperature 100 F H Pulse Rate 114 H Pulse Rate [ 112 H From Monitor] Respiratory 18 Rate Blood Pressure 134/81 O2 Sat by Pulse 100 99 Oximetry 08/15/21 08/15/21 08/15/21 00:00 00:12 04:00 Temperature Pulse Rate Pulse Rate [ 110 H 110 H From Monitor] Respiratory 18 16 Rate Blood Pressure O2 Sat by Pulse 100 99 100 Oximetry 08/15/21 05:01 Temperature 98.0 F Pulse Rate 106 H Pulse Rate [ From Monitor] Respiratory 18 Rate Blood Pressure 152/96 O2 Sat by Pulse 100 Oximetry - Labs 08/15/21 07:05 08/15/21 07:05 Diabetes panel 08/14/21 08/14/21 08/14/21 Range/Units 09:17 22:55 22:55 Sodium 136 L 132 L (137-145) mmol/L Potassium 4.2 3.5 L (3.6-5.0) mmol/L Chloride 100.4 98.5 (98-107) mmol/L Carbon Dioxide 21 L 21 L (22-30) mmol/L BUN 9 9 (9-20) mg/dL Creatinine 0.5 L 0.4 L (0.8-1.3) mg/dL Glucose 258 H 272 H (75-100) mg/dL Hemoglobin A1c 14.8 H (4-6) % Calcium 9.1 8.3 L (8.4-10.2) mg/dL Calcium panel 08/14/21 08/14/21 Range/Units 09:17 22:55 Calcium 9.1 8.3 L (8.4-10.2) mg/dL Pituitary panel 08/14/21 08/14/21 Range/Units 09:17 22:55 Sodium 136 L 132 L (137-145) mmol/L Potassium 4.2 3.5 L (3.6-5.0) mmol/L Chloride 100.4 98.5 (98-107) mmol/L Carbon Dioxide 21 L 21 L (22-30) mmol/L BUN 9 9 (9-20) mg/dL Creatinine 0.5 L 0.4 L (0.8-1.3) mg/dL Glucose 258 H 272 H (75-100) mg/dL Calcium 9.1 8.3 L (8.4-10.2) mg/dL Adrenal panel 08/14/21 08/14/21 Range/Units 09:17 22:55 Sodium 136 L 132 L (137-145) mmol/L Potassium 4.2 3.5 L (3.6-5.0) mmol/L Chloride 100.4 98.5 (98-107) mmol/L Carbon Dioxide 21 L 21 L (22-30) mmol/L BUN 9 9 (9-20) mg/dL Creatinine 0.5 L 0.4 L (0.8-1.3) mg/dL Glucose 258 H 272 H (75-100) mg/dL Calcium 9.1 8.3 L (8.4-10.2) mg/dL
[2021-08-15 07:37] LABS: Basophils % (Auto) 0.2 % (0.0-1.8); Eosinophils % (Auto) 0.1 % (0.0-4.3); Hematocrit 38.8 % (35.5-45.6); Hemoglobin 12.4 gm/dl (11.8-15.2); Lymphocytes % (Auto) 8.4 % (13.4-35.0); Mean Corpuscular HGB Conc 32 % (32-34); Mean Corpuscular Volume 77 fl (84-94); Monocytes # (Auto) 0.7 K/mm3 (0.0-0.8); Monocytes % (Auto) 5.8 % (0.0-7.3); Platelet Count 235 K/mm3 (140-440); Red Blood Count 5.04 M/mm3 (3.65-5.03); Red Cell Distribution Width 13.2 % (13.2-15.2)
[2021-08-15 07:57] LABS: Blood Urea Nitrogen 5 mg/dL (9-20); Calcium 8.5 mg/dL (8.4-10.2); Hemolysis Index 0
[2021-08-15 08:00] LABS: BUN/Creatinine Ratio 17
--- NOTE | 2021-08-15 08:02 | Operative Report ---
Operative Report Operative Report: Procedure date:08/14/2021 Preop diagnosis: Acute appendicitis Postop diagnosis: Same Procedure: Laparoscopic appendectomy Surgeon: Dr. Monterroso Anesthesia: General endotracheal Estimated blood loss: 50 cc Specimen: Appendix Findings: This patient presents with a acute appendicitis diagnosed on CAT scan. He is taken to the OR and under general endotracheal anesthesia timeouts and consents are obtained. An Paredes catheter is placed. Abdomen is prepped with ChloraPrep and 3 minutes later draped in a sterile fashion. A 2 mm incision is made in the left upper quadrant and Veress needle was used to gain access peritoneal cavity. Abdomen is insufflated with CO2. 5 Raymundo port is placed in the right upper quadrant and in the low midline. A 10 mm port is placed supraumbilically. An additional 5 Raymundo port was placed for exposure. The appendix is identified in the right lower quadrant and grasped with graspers. The endoscopic MJ stapler is used to separate the appendix from the base of the cecum. Harmonic scalpel was used to divide the mesoappendix. Specimen is then placed in a specimen bag and extracted through the 10 mm port. The fascial defect is then closed with a Shaheed Chaudhry system and a 2-0 Vicryl stitch. Skin is then closed with ivan.
[2021-08-15] MEDS ORDERED: DEXTROSE 50% IN WATER (25GM) 50 ML SYRINGE IV PRN (08:06)
[2021-08-15] MEDS ORDERED: POTASSIUM CHLORIDE ER 20 MEQ TAB PO NR (08:08)
[2021-08-15] MEDS ORDERED: LACTATED RINGERS 1,000 ML IV ONE (09:00)
[2021-08-15] MEDS: FAMOTIDINE 20 MG/2 ML INJ IV SCH ×2 (09:17→22:53)
[2021-08-15] MEDS: HEPARIN 5,000 UNIT/1 ML VIAL SUB-Q SCH ×2 (09:17→22:54)
--- NOTE | 2021-08-15 11:24 | Electrocardiograph Report ---
[facility] Test Date: 2021-08-14 Test Time: 08:36:55 Pat Name: JAZ JONES Department: Room: A379 Gender: M Media Technician: YA : 2000 Requested By: MEGHNA NEFF Order Number: [id number] Reading MD: Bob Sarabia Measurements Intervals [place] Rate: 121 P: 63 KS: 157 QRS: 63 QRSD: 75 T: -12 QT: 305 QTc: 433 Interpretive Statements Sinus tachycardia Borderline ST elevation, anterior leads Compared to ECG 06/19/2021 11:56:32 ST (T wave) deviation now present Electronically Signed On 08-15-2021 11:23:52 EDT by Bob Sarabia
[2021-08-15] MEDS: LOSARTAN 50 MG TAB PO SCH (13:02)
[2021-08-15] MEDS: INSULIN NPH/REGULAR 70/30 INJ SUB-Q SCH (13:14)
--- NOTE | 2021-08-15 14:05 | Progress Note ---
Assessment and Plan Assessment and plan: This is a 20-year-old male with insulin-dependent diabetes, marijuana smoker , oxycodone use who presented to emergency department on 08/14 with complaints of abdominal pain, nausea and vomiting for the past day and he stated that he ran out of his medication for a month and a half. In the emergency department lab work was consistent with DKA with a blood glucose of 665, anion gap of 27, CO2 of 20. He also had leukocytosis. CT scan of his abdomen showed moderate acute appendicitis without abscess and solitary dilated small bowel loops in the lower abdomen/upper pelvis likely related to localized adynamic ileus. Surgery was consulted and patient was admitted to the hospital service to the ICU on DKA protocol. CCM was also consulted. 08/14: Patient scheduled for OR today. AG has closed and patient has been transitioned to long-acting insulin however remains n.p.o. for surgery. He will remain on IV fluids until okayed by surgery for p.o. intake. 08/15: Patient transferred to floor. Attempting tighter blood glucose control. Planning for discharge home tomorrow. #Polysubstance dependence -Patient engages in the following substances: Marijuana and oxycodone -Counseled patient about the importance of cessation of substance abuse. Offered resources to help with quitting. Patient expresses understanding. -Time: +10 mins #Acute uncomplicated appendicitis status post laparoscopic appendectomy General surgery performed procedure on 08/14/2021, patient tolerated it well General surgery consulted; appreciate recs Currently on soft GI diet. Continue analgesics as needed. Patient will follow with general surgery and outpatient clinic upon discharge in approximately 2 weeks. #DKAresolved #Insulin-dependent type 1 diabetes mellitus #Anion gap metabolic acidosisresolved #Pseudohyponatremiaresolved Hemoglobin A1c 14.8 DKA likely secondary to medication noncompliance. Status post insulin drip and IV fluid resuscitation. Anion gap closed. Received empiric antibiotic treatment (Zosyn and Flagyl) that have since been discontinued. Blood cultures NGTD Starting NPH 70/30 10 units daily + low SSI. Counseled patient about importance of medication compliance and utilizing clinical pharmacy. Patient expresses understanding. Blood glucose goal [id number] while inpatient Continue to monitor #Advanced care planning -Disease education conducted, care plan discussed, diagnoses discussed, prognosis discussed, and patient acknowledges understanding with care plan -Time: +30 min #Discharge planning - Patient is pending tighter glycemic control - Case management has been made aware. - Discharge is tentatively 24 hours Disposition Plan: Pending possible discharge home tomorrow Total Time Spent with Patient (Minutes): 30 minutes History Interval history: Patient underwent laparoscopic appendectomy yesterday and tolerated the procedure well. Hospitalist Physical - Constitutional Vitals: Temp Pulse Resp BP Pulse Ox 98.6 F 107 H 18 155/91 100 08/15/21 12:25 08/15/21 12:25 08/15/21 12:25 08/15/21 12:25 08/15/21 12:25 General appearance: Present: mild distress, well-nourished - EENT Eyes: Present: PERRL, EOM intact ENT: hearing intact, clear oral mucosa, dentition normal - Neck Neck: Present: supple, normal ROM - Respiratory Respiratory effort: normal Respiratory: bilateral: CTA - Cardiovascular Rhythm: regular Heart Sounds: Present: S1 & S2 - Extremities Extremities: no ischemia, pulses intact, pulses symmetrical, No edema, normal temperature, normal color, Full ROM Peripheral Pulses: within normal limits - Abdominal General gastrointestinal: soft, tender (Appropriate tenderness at incision sites), non-distended, normal bowel sounds Localized gastrointestinal: tender: diffuse - Integumentary Integumentary: Present: clear, warm, dry - Psychiatric Psychiatric: appropriate mood/affect, intact judgment & insight, memory intact, cooperative - Neurologic Neurologic: CNII-XII intact, moves all extremities - Allied Health Allied health notes reviewed: nursing Results - Labs CBC & Chem 7: 08/15/21 07:05 08/15/21 07:05 Labs: Laboratory Last Values WBC 11.7 K/mm3 (4.5-11.0) H 08/15/21 07:05 RBC 5.04 M/mm3 (3.65-5.03) H 08/15/21 07:05 Hgb 12.4 gm/dl (11.8-15.2) D 08/15/21 07:05 Hct 38.8 % (35.5-45.6) D 08/15/21 07:05 MCV 77 fl (84-94) L 08/15/21 07:05 MCH 25 pg (28-32) L 08/15/21 07:05 MCHC 32 % (32-34) 08/15/21 07:05 RDW 13.2 % (13.2-15.2) 08/15/21 07:05 Plt Count 235 K/mm3 (140-440) 08/15/21 07:05 Lymph % (Auto) 8.4 % (13.4-35.0) L 08/15/21 07:05 [place] % (Auto) 5.8 % (0.0-7.3) 08/15/21 07:05 Eos % (Auto) 0.1 % (0.0-4.3) 08/15/21 07:05 Baso % (Auto) 0.2 % (0.0-1.8) 08/15/21 07:05 Lymph # (Auto) 1.0 K/mm3 (1.2-5.4) L 08/15/21 07:05 [place] # (Auto) 0.7 K/mm3 (0.0-0.8) 08/15/21 07:05 Eos # (Auto) 0.0 K/mm3 (0.0-0.4) 08/15/21 07:05 Baso # (Auto) 0.0 K/mm3 (0.0-0.1) 08/15/21 07:05 Add Manual Diff Complete 08/14/21 03:11 Total Counted 100 08/14/21 03:11 Seg Neutrophils % 85.5 % (40.0-70.0) H 08/15/21 07:05 Seg Neuts % (Manual) 82.0 % (40.0-70.0) H 08/14/21 03:11 Band Neutrophils % 0 % 08/14/21 03:11 Lymphocytes % (Manual) 10.0 % (13.4-35.0) L 08/14/21 03:11 Reactive Lymphs % (Man) 0 % 08/14/21 03:11 Monocytes % (Manual) 7.0 % (0.0-7.3) 08/14/21 03:11 Eosinophils % (Manual) 1.0 % (0.0-4.3) 08/14/21 03:11 Basophils % (Manual) 0 % (0.0-1.8) 08/14/21 03:11 Metamyelocytes % 0 % 08/14/21 03:11 Myelocytes % 0 % 08/14/21 03:11 Promyelocytes % 0 % 08/14/21 03:11 Blast Cells % 0 % 08/14/21 03:11 Nucleated RBC % Not Reportable 08/14/21 03:11 Seg Neutrophils # 10.0 K/mm3 (1.8-7.7) H 08/15/21 07:05 Seg Neutrophils # Man 18.1 K/mm3 (1.8-7.7) H 08/14/21 03:11 Band Neutrophils # 0.0 K/mm3 08/14/21 03:11 Lymphocytes # (Manual) 2.2 K/mm3 (1.2-5.4) 08/14/21 03:11 Abs React Lymphs (Man) 0.0 K/mm3 08/14/21 03:11 Monocytes # (Manual) 1.5 K/mm3 (0.0-0.8) H 08/14/21 03:11 Eosinophils # (Manual) 0.2 K/mm3 (0.0-0.4) 08/14/21 03:11 Basophils # (Manual) 0.0 K/mm3 (0.0-0.1) 08/14/21 03:11 Metamyelocytes # 0.0 K/mm3 08/14/21 03:11 Myelocytes # 0.0 K/mm3 08/14/21 03:11 Promyelocytes # 0.0 K/mm3 08/14/21 03:11 Blast Cells # 0.0 K/mm3 08/14/21 03:11 WBC Morphology Not Reportable 08/14/21 03:11 Hypersegmented Neuts Not Reportable 08/14/21 03:11 Hyposegmented Neuts Not Reportable 08/14/21 03:11 Hypogranular Neuts Not Reportable 08/14/21 03:11 Smudge Cells Not Reportable 08/14/21 03:11 Toxic Granulation Not Reportable 08/14/21 03:11 Toxic Vacuolation Not Reportable 08/14/21 03:11 Dohle Bodies Not Reportable 08/14/21 03:11 Pelger-Huet Anomaly Not Reportable 08/14/21 03:11 Dario Rods Not Reportable 08/14/21 03:11 Platelet Estimate Consistent w auto 08/14/21 03:11 Clumped Platelets Not Reportable 08/14/21 03:11 Plt Clumps, EDTA Not Reportable 08/14/21 03:11 Large Platelets Not Reportable 08/14/21 03:11 Giant Platelets Not Reportable 08/14/21 03:11 Platelet Satelliting Not Reportable 08/14/21 03:11 Plt Morphology Comment Not Reportable 08/14/21 03:11 RBC Morphology Normal 08/14/21 03:11 Dimorphic RBCs Not Reportable 08/14/21 03:11 Polychromasia Not Reportable 08/14/21 03:11 Hypochromasia 1+ 08/14/21 03:11 Poikilocytosis Not Reportable 08/14/21 03:11 Anisocytosis Not Reportable 08/14/21 03:11 Microcytosis Not Reportable 08/14/21 03:11 Macrocytosis Not Reportable 08/14/21 03:11 Spherocytes Not Reportable 08/14/21 03:11 Pappenheimer Bodies Not Reportable 08/14/21 03:11 Sickle Cells Not Reportable 08/14/21 03:11 Target Cells Not Reportable 08/14/21 03:11 Tear Drop Cells Not Reportable 08/14/21 03:11 Ovalocytes Not Reportable 08/14/21 03:11 Helmet Cells Not Reportable 08/14/21 03:11 [place] Bodies Not Reportable 08/14/21 03:11 [place] Rings Not Reportable 08/14/21 03:11 [place] Cells Not Reportable 08/14/21 03:11 Bite Cells Not Reportable 08/14/21 03:11 Crenated Cell Not Reportable 08/14/21 03:11 Elliptocytes Not Reportable 08/14/21 03:11 Acanthocytes (Spur) Not Reportable 08/14/21 03:11 Rouleaux Not Reportable 08/14/21 03:11 Hemoglobin C Crystals Not Reportable 08/14/21 03:11 Schistocytes Not Reportable 08/14/21 03:11 Malaria parasites Not Reportable 08/14/21 03:11 Anton Bodies Not Reportable 08/14/21 03:11 Hem Pathologist Commnt No 08/14/21 03:11 VBG pH 7.215 (7.320-7.420) L 08/14/21 04:48 Sodium 135 mmol/L (137-145) L 08/15/21 07:05 Potassium 3.4 mmol/L (3.6-5.0) L 08/15/21 07:05 Chloride 99.2 mmol/L (98-107) 08/15/21 07:05 Carbon Dioxide 21 mmol/L (22-30) L 08/15/21 07:05 Anion Gap 18 mmol/L 08/15/21 07:05 BUN 5 mg/dL (9-20) L 08/15/21 07:05 Creatinine 0.3 mg/dL (0.8-1.3) L 08/15/21 07:05 Estimated GFR > 60 ml/min 08/15/21 07:05 BUN/Creatinine Ratio 17 % 08/15/21 07:05 Glucose 240 mg/dL (75-100) H 08/15/21 07:05 POC Glucose 251 mg/dL (70-105) H 08/14/21 21:44 Hemoglobin A1c 14.8 % (4-6) H 08/14/21 22:55 Calcium 8.5 mg/dL (8.4-10.2) 08/15/21 07:05 Phosphorus 4.40 mg/dL (2.5-4.5) 08/14/21 05:54 Magnesium 1.80 mg/dL (1.7-2.3) 08/14/21 05:54 Total Bilirubin 0.70 mg/dL (0.1-1.2) 08/14/21 03:11 AST 10 units/L (5-40) 08/14/21 03:11 ALT 19 units/L (7-56) 08/14/21 03:11 Alkaline Phosphatase 96 units/L (35-129) 08/14/21 03:11 Total Protein 8.0 g/dL (6.3-8.2) 08/14/21 03:11 Albumin 4.6 g/dL (3.9-5) 08/14/21 03:11 Albumin/Globulin Ratio 1.4 % 08/14/21 03:11 Urine Color Colorless (Yellow) 08/14/21 Unknown Urine Turbidity Clear (Clear) 08/14/21 Unknown Urine pH 6.0 (5.0-7.0) 08/14/21 Unknown Ur Specific [place] 1.010 (1.003-1.030) 08/14/21 Unknown Urine Protein <15 mg/dl mg/dL (Negative) 08/14/21 Unknown Urine Glucose (UA) Trace mg/dL (Negative) 08/14/21 Unknown Urine Ketones Trace mg/dL (Negative) 08/14/21 Unknown Urine Blood Neg (Negative) 08/14/21 Unknown Urine Nitrite Neg (Negative) 08/14/21 Unknown Ur Reducing Substances Not Reportable 08/14/21 Unknown Urine Bilirubin Neg (Negative) 08/14/21 Unknown Urine Ictotest Not Reportable 08/14/21 Unknown Urine Urobilinogen < 2.0 mg/dL (<2.0) 08/14/21 Unknown Ur Leukocyte Esterase Neg (Negative) 08/14/21 Unknown Urine WBC (Auto) 1.0 /HPF (0.0-6.0) 08/14/21 Unknown Urine RBC (Auto) < 1.0 /HPF (0.0-6.0) 08/14/21 Unknown U Epithel Cells (Auto) < 1.0 /HPF (0-13.0) 08/14/21 Unknown Microbiology: Microbiology 08/14/21 Unknown Abdomen Surgical Culture - Preliminary Paredes/IV: Voiding Method Toilet Active Medications - Current Medications Current Medications: Generic Name Dose Route Start Last Admin Trade Name Freq PRN Reason Stop Dose Admin Acetaminophen 650 mg 08/14/21 06:09 Acetaminophen 325 Mg Tab PO Q4H PRN Pain MILD(1-3)/Fever >100.5/GOMES Albuterol 2.5 mg 08/14/21 06:09 Albuterol 2.5 Mg/3 Ml Nebu IH Q3HRT PRN Shortness Of Breath Dextrose 0 ml 08/14/21 06:00 Dextrose 10% *Hypoglycemia IV DIRECT PRN Hypoglycemia Protocol Dextrose 50 ml 08/15/21 08:06 Dextrose 50% In Water (25gm) 50 Ml Syringe IV Q30MIN PRN Hypoglycemia Protocol Famotidine 20 mg 08/14/21 10:00 08/15/21 09:17 Famotidine 20 Mg/2 Ml Inj IV 20 mg BID JAIME Administration Heparin Sodium (Porcine) 5,000 unit 08/14/21 10:00 08/15/21 09:17 Heparin 5,000 Unit/1 Ml Vial SUB-Q 5,000 unit Q12HR JAIME Administration Hydromorphone HCl 0.5 mg 08/14/21 06:09 08/15/21 08:35 Hydromorphone 1 Mg/1 Ml Inj IV 0.5 mg Q3H PRN Administration Pain , Severe (7-10) Insulin Human Isoph/Insulin Regular 10 unit 08/15/21 09:00 08/15/21 13:14 Insulin Nph/Regular 70/30 Inj SUB-Q 10 unit QDDIAB JAIME Administration Insulin Human Regular 0 units 08/15/21 11:30 08/15/21 13:00 Insulin Regular, Human 100 Units/1 Ml SUB-Q 3 units ACHS JAIME Administration Protocol Losartan Potassium 50 mg 08/15/21 11:00 08/15/21 13:02 Losartan 50 Mg Tab PO 50 mg QDAY JAIME Administration Morphine Sulfate 2 mg 08/14/21 06:09 Morphine 2 Mg/1 Ml Inj IV Q4H PRN Pain, Moderate (4-6) Ondansetron HCl 4 mg 08/14/21 06:09 08/14/21 07:51 Ondansetron 4 Mg/2 Ml Inj IV 4 mg Q8H PRN Administration Nausea And Vomiting Sodium Chloride 10 ml 08/14/21 10:00 08/15/21 13:14 Sodium Chloride 0.9% 10 Ml Flush Syringe IV 10 ml BID JAIME Administration Sodium Chloride 10 ml 08/14/21 06:09 Sodium Chloride 0.9% 10 Ml Flush Syringe IV PRN PRN LINE FLUSH Nutrition/Malnutrition Assess - Dietary Evaluation Nutrition/Malnutrition Findings: Nutrition Notes Start: 08/14/21 14:55 Freq: Status: Active Protocol: Document 08/14/21 14:55 DEBORA (Rec: 08/14/21 15:20 DEBORA [id number]) Nutrition Notes Need for Assessment generated from: guide travel,MST Initial or Follow up Assessment Current Diagnosis Diabetes Other Pertinent Diagnosis N/V/Abdominal Pain, Appendicitis w/o Abscess, DKA, Ileus, Leukocytosis. Current Diet NPO (since 08/14 06:10). Labs/Tests 08/14: Na 136, CO2 21, Crea 0. 5, Glu 258. Pertinent Medications 08/14: D5/0.45ns 1000 ml @ 75 ml/hr., Insulin, KCl 10 mEq, others nutritionally unremarkable. Height 6 ft Weight 73.8 kg [place] Body Weight (kg) 80.90 BMI 22.0 Intake Prior to Admission Good Weight change and time frame Pt states being unsure if loss body weight recently. Weight Status Appropriate Subjective/Other Information RD consult for risk of malnutrition assessment and Nutrition Education. Pt currently on NPO. Procedure on 08/14: Laparoscopic Appendectomy. PO will start after Procedure ends and Gastroenterology's OK , according to Progress notes. Pt shows no signs of concern for risk of malnutrition at the time, according to Physical Assessment History notes. Pt still on critical condition , not a candidate for Nutrition Education at the time, will assess feasibility on F/U. Percent of energy/protein needs met: Pt currently on NPO. Burn Absent Trauma Absent GI Symptoms Other Food Allergy No Skin Integrity/Comment Surgical wound. Current % PO Other Minimum of two criteria No #1 Nutrition Diagnosis No nutrition diagnosis at this time Comments: Will assess at F/U for PO intake and tolerance of meals. Is patient on ventilator? No Is Patient Ambulatory and/or Out of Bed Yes REE-([facility]-ambulatory/OOB) [ 2308.800 [id number]] Calculation Used for Recommendations [facility] Additional Notes Protein: 1.5-2 g/Kg ABW; 111- 148 g/day. Fluids: 1 ml/Kcal, or as per MD. Nutrition Intervention Follow-Up By: 08/21/21 Additional Comments Nutrition education will be provided on F/U, if feasible. When pertinent, start monitoring food tolerance, %PO intake of meals, and BM.
[2021-08-16] MEDS: HYDROmorphone 1 MG/1 ML INJ IV PRN ×3 (03:46→12:41)
[2021-08-16 06:25] LABS: Basophils % (Auto) 0.1 % (0.0-1.8); Eosinophils # (Auto) 0.1 K/mm3 (0.0-0.4); Eosinophils % (Auto) 0.7 % (0.0-4.3); Hematocrit 39.8 % (35.5-45.6); Hemoglobin 12.9 gm/dl (11.8-15.2); Lymphocytes % (Auto) 9.6 % (13.4-35.0); Mean Corpuscular HGB Conc 32 % (32-34); Mean Corpuscular Volume 77 fl (84-94); Monocytes # (Auto) 0.8 K/mm3 (0.0-0.8); Monocytes % (Auto) 6.9 % (0.0-7.3); Platelet Count 238 K/mm3 (140-440); Red Blood Count 5.17 M/mm3 (3.65-5.03); Red Cell Distribution Width 13.6 % (13.2-15.2)
[2021-08-16 06:45] LABS: Blood Urea Nitrogen 6 mg/dL (9-20); Calcium 9.2 mg/dL (8.4-10.2); Hemolysis Index 1
[2021-08-16 06:52] LABS: BUN/Creatinine Ratio 15
--- NOTE | 2021-08-16 07:37 | Progress Note ---
Assessment and Plan Patient postop day #2 status post laparoscopic appendectomy for moderately advanced appendicitis. He also was admitted with poorly controlled diabetes. Continue observation through today correction of metabolic abnormalities and IV antibiotics. Obtain stool for culture sensitivity and C. difficile toxin assay. Surgically cleared for discharge today follow-up with me in 1 week Subjective Date of service: 08/16/21 Narrative: Postop day #2 status post laparoscopic appendectomy. Objective Vital Signs - 12hr 08/15/21 08/15/21 08/15/21 20:00 20:01 23:03 Temperature 98.5 F Pulse Rate 137 H Pulse Rate [ 112 H From Monitor] Respiratory 16 18 Rate Blood Pressure Blood Pressure 144/79 [Left] O2 Sat by Pulse 100 94 98 Oximetry 08/16/21 08/16/21 08/16/21 00:00 03:41 04:00 Temperature 98.1 F Pulse Rate 122 H Pulse Rate [ 112 H 112 H From Monitor] Respiratory 16 18 16 Rate Blood Pressure 140/83 Blood Pressure [Left] O2 Sat by Pulse 100 98 100 Oximetry - Labs 08/16/21 05:42 08/16/21 05:42 Diabetes panel 08/15/21 08/16/21 Range/Units 07:05 05:42 Sodium 135 L 136 L (137-145) mmol/L Potassium 3.4 L 3.7 (3.6-5.0) mmol/L Chloride 99.2 99.6 (98-107) mmol/L Carbon Dioxide 21 L 23 (22-30) mmol/L BUN 5 L 6 L (9-20) mg/dL Creatinine 0.3 L 0.4 L (0.8-1.3) mg/dL Glucose 240 H 300 H (75-100) mg/dL Calcium 8.5 9.2 (8.4-10.2) mg/dL Calcium panel 08/15/21 08/16/21 Range/Units 07:05 05:42 Calcium 8.5 9.2 (8.4-10.2) mg/dL Pituitary panel 08/15/21 08/16/21 Range/Units 07:05 05:42 Sodium 135 L 136 L (137-145) mmol/L Potassium 3.4 L 3.7 (3.6-5.0) mmol/L Chloride 99.2 99.6 (98-107) mmol/L Carbon Dioxide 21 L 23 (22-30) mmol/L BUN 5 L 6 L (9-20) mg/dL Creatinine 0.3 L 0.4 L (0.8-1.3) mg/dL Glucose 240 H 300 H (75-100) mg/dL Calcium 8.5 9.2 (8.4-10.2) mg/dL Adrenal panel 08/15/21 08/16/21 Range/Units 07:05 05:42 Sodium 135 L 136 L (137-145) mmol/L Potassium 3.4 L 3.7 (3.6-5.0) mmol/L Chloride 99.2 99.6 (98-107) mmol/L Carbon Dioxide 21 L 23 (22-30) mmol/L BUN 5 L 6 L (9-20) mg/dL Creatinine 0.3 L 0.4 L (0.8-1.3) mg/dL Glucose 240 H 300 H (75-100) mg/dL Calcium 8.5 9.2 (8.4-10.2) mg/dL
[2021-08-16] MEDS ORDERED: LACTATED RINGERS 1,000 ML IV ONE ×2 (08:30→09:30)
[2021-08-16] MEDS: INSULIN NPH/REGULAR 70/30 INJ SUB-Q SCH (08:49)
[2021-08-16] MEDS: INSULIN REGULAR, HUMAN 100 UNITS/1 ML SUB-Q SCH ×2 (08:51→12:46)
[2021-08-16] MEDS ORDERED: FAMOTIDINE 20 MG TAB PO SCH (10:00)
--- NOTE | 2021-08-16 12:19 | Discharge Summary ---
Providers - Providers Date of Admission: 08/14/21 06:10 Date of discharge: 08/16/21 Attending physician: ADE WINTER MD 08/14/21 06:43 Consult to Physician [CONS] Routine Comment: NICHOLAS Phoenix spoke with Dr. Monterroso @ [id number] Consulting Provider: ZAKIYA MONTERROSO Physician Instructions: Reason For Exam: appendicitis Primary care physician: BIBIANA VILLAGRAN Hospitalization Reason for admission: DKA; acute appendicitis with ileus Condition: Stable Pertinent studies: Reviewed. Procedures: Laparoscopic appendectomy Hospital course: This is a 20-year-old male with a past medical history of insulin-dependent type I diabetes mellitus, marijuana consumption, and oxycodone use who presented to emergency department with complaints of abdominal pain, nausea, and vomiting for the past day, and he stated that he ran out of his medication for a month and a half. In the emergency department, lab work was consistent with DKA with a blood glucose of 665, anion gap of 27, and CO2 of 20. He also had leukocytosis. CT scan of his abdomen showed moderate acute appendicitis without abscess and solitary dilated small bowel loops in the lower abdomen/upper pelvis likely related to localized adynamic ileus. Surgery was consulted and patient was admitted to the hospital service to the ICU on DKA protocol. In the ICU, the patient was started with aggressive IV fluid resuscitation and IV insulin drip with eventual closure of his anion gap and significant improvement of his hyperglycemia. General surgery performed a laparoscopic appendectomy on 08/14/2021, the patient tolerated the procedure well. The patient was then transferred to the floor on 08/15/2021. The patient remained tachycardic and needed additional glycemic control requiring an additional day of management. Patient was counseled at length about the importance of medication compliance, following up with primary care provider (will be referred to 1 upon discharge), and utilizing clinical pharmacy and instances of difficulty with controlling his glycemic levels. The patient expresses understanding. Patient will follow up with general surgery in approximately 1 week. The patient is medically clear for discharge. Disposition: 01 HOME / SELF CARE / HOMELESS Final Discharge Diagnosis (Prints w/discharge instructions): DKA, insulin- dependent type 1 diabetes mellitus, anion gap metabolic acidosis, pseudohyponatremia, acute uncomplicated appendicitis status post laparoscopic appendectomy, polysubstance abuse Time spent for discharge: 45 min Core Measure Documentation - Palliative Care Palliative Care/ Comfort Measures: Not Applicable - Core Measures Any of the following diagnoses?: none Exam - Constitutional Vitals: Temp Pulse Resp BP Pulse Ox 98.1 F 112 H 16 140/83 100 08/16/21 03:41 08/16/21 04:00 08/16/21 04:00 08/16/21 03:41 08/16/21 04:00 General appearance: Present: no acute distress, well-nourished - EENT Eyes: Present: PERRL, EOM intact ENT: hearing intact, clear oral mucosa, dentition normal - Neck Neck: Present: supple, normal ROM - Respiratory Respiratory effort: normal Respiratory: bilateral: CTA - Cardiovascular Rhythm: regular Heart Sounds: Present: S1 & S2 - Extremities Extremities: no ischemia, pulses intact, pulses symmetrical, No edema, normal temperature, normal color, Full ROM Peripheral Pulses: within normal limits - Abdominal General gastrointestinal: Present: soft, tender (Appropriate tenderness at incision sites), non-distended, normal bowel sounds Male genitourinary: Present: deferred - Rectal Rectal Exam: deferred - Integumentary Integumentary: Present: clear, warm, dry - Musculoskeletal Musculoskeletal: strength equal bilaterally - Psychiatric Psychiatric: appropriate mood/affect, intact judgment & insight, memory intact, cooperative - Neurologic Neurologic: CNII-XII intact, moves all extremities - Allied Health Allied health notes reviewed: nursing Plan Activity: advance as tolerated Diet: diabetic Wound: per your surgeon's advice Additional Instructions: This is a 20-year-old male with a past medical history of insulin-dependent type I diabetes mellitus, marijuana consumption, and oxycodone use who presented to emergency department with complaints of abdominal pain, nausea, and vomiting for the past day, and he stated that he ran out of his medication for a month and a half. In the emergency department, lab work was consistent with DKA with a blood glucose of 665, anion gap of 27, and CO2 of 20. He also had leukocytosis. CT scan of his abdomen showed moderate acute appendicitis without abscess and solitary dilated small bowel loops in the lower abdomen/upper pelvis likely related to localized adynamic ileus. Surgery was consulted and patient was admitted to the hospital service to the ICU on DKA protocol. In the ICU, the patient was started with aggressive IV fluid resuscitation and IV insulin drip with eventual closure of his anion gap and significant improvement of his hyperglycemia. General surgery performed a laparoscopic appendectomy on 08/14/2021, the patient tolerated the procedure well. The patient was then transferred to the floor on 08/15/2021. The patient remained tachycardic and needed additional glycemic control requiring an additional day of management. Patient was counseled at length about the importance of medication compliance, following up with primary care provider (will be referred to 1 upon discharge), and utilizing clinical pharmacy and instances of difficulty with controlling his glycemic levels. The patient expresses understanding. Patient will follow up with general surgery in approximately 1 week. The patient is medically clear for discharge. Care Plan Goals: Patient is medically clear for discharge. Assessment: This is a 20-year-old male with a past medical history of insulin-dependent type I diabetes mellitus, marijuana consumption, and oxycodone use who presented to emergency department with complaints of abdominal pain, nausea, and vomiting for the past day, and he stated that he ran out of his medication for a month and a half. In the emergency department, lab work was consistent with DKA with a blood glucose of 665, anion gap of 27, and CO2 of 20. He also had leukocytosis. CT scan of his abdomen showed moderate acute appendicitis without abscess and solitary dilated small bowel loops in the lower abdomen/upper pelvis likely related to localized adynamic ileus. Surgery was consulted and patient was admitted to the hospital service to the ICU on DKA protocol. In the ICU, the patient was started with aggressive IV fluid resuscitation and IV insulin drip with eventual closure of his anion gap and significant improvement of his hyperglycemia. General surgery performed a laparoscopic appendectomy on 08/14/2021, the patient tolerated the procedure well. The patient was then transferred to the floor on 08/15/2021. The patient remained tachycardic and needed additional glycemic control requiring an additional day of management. Patient was counseled at length about the importance of medication compliance, following up with primary care provider (will be referred to 1 upon discharge), and utilizing clinical pharmacy and instances of difficulty with controlling his glycemic levels. The patient expresses understanding. Patient will follow up with general surgery in approximately 1 week. The patient is medically clear for discharge. Follow up with: BIBIANA VILLAGRAN MD [Primary Care Provider] - 7 Days ZAKIYA MONTERROSO MD [Staff Physician] - 7 Days Forms: Work/School Release Form Prescriptions: Losartan [Cozaar] 50 mg PO QDAY #30 tablet Insulin Aspart Prot/Insuln Asp [Insulin Aspart Prot-Insuln Asp] 100 unit SQ ACHS #1 vial Insulin Glargine [Lantus VIAL] 10 units SUB-Q BID #2 vial Ibuprofen [Motrin 800 MG tab] 800 mg PO Q8HR PRN #9 tablet PRN Reason: Pain , Severe (7-10)
[2021-08-16] MEDS: LOSARTAN 50 MG TAB PO SCH (12:43)
[2021-08-16] MEDS: HEPARIN 5,000 UNIT/1 ML VIAL SUB-Q SCH (12:44)
[2021-08-16 12:47] VITALS: BP 137/78
== END 2021-08-16 16:55 | disposition home or self-care (01) | DRG 341 ==
LOC: ED 02:53 → SUATTDRO 02:53 → CC1 06:10 → 3A 18:57
PROVIDERS: ADMIT Hospitalist; ATTEND Student in an Organized Health Care Education/Training Program
PROC: 0DTJ4ZZ Resection of Appendix, Percutaneous Endoscopic Approach (ICD-10-PCS; principal; 2021-08-14)
DX: K35.890 Other acute appendicitis without perforation or gangrene (principal); E10.10 Type 1 diabetes mellitus with ketoacidosis without coma; K56.7 Ileus, unspecified; F19.20 Other psychoactive substance dependence, uncomplicated; F17.200 Nicotine dependence, unspecified, uncomplicated; F12.20 Cannabis dependence, uncomplicated; Z83.3 Family history of diabetes mellitus
CPT/HCPCS: 36415; 74176; 80048; 80053; 81001; 82805; 82962; 83036; 83735; 84100; 85007; 85025; 87075; 87076; 87116; 87186; 88304; 88341; 88342; 93005; G0378; J1815; J3480; J3490; J7070; J7120; Q0162; Q0177; Q9967; J1170; J1644; J1885; J2250; J2270; J2370; J2405; J2543; J2704; J2710; J7030

== ENCOUNTER 2021-11-22 08:30 | Emergency (ER) | payer SELFPAY ==
[2021-11-22 08:51] VITALS: BP 153/92
[2021-11-22 09:23] LABS: Basophils % (Auto) 0.4 % (0.0-1.8); Eosinophils % (Auto) 0.1 % (0.0-4.3); Hematocrit 41.4 % (35.5-45.6); Hemoglobin 14.3 gm/dl (11.8-15.2); Lymphocytes # (Auto) 1.3 K/mm3 (1.2-5.4); Lymphocytes % (Auto) 17.4 % (13.4-35.0); Mean Corpuscular HGB Conc 35 % (32-34); Mean Corpuscular Volume 74 fl (84-94); Monocytes # (Auto) 0.4 K/mm3 (0.0-0.8); Monocytes % (Auto) 5.7 % (0.0-7.3); Platelet Count 331 K/mm3 (140-440); Red Blood Count 5.59 M/mm3 (3.65-5.03); Red Cell Distribution Width 13.2 % (13.2-15.2)
[2021-11-22 09:42] LABS: Blood Urea Nitrogen 8 mg/dL (9-20); Calcium 9.7 mg/dL (8.4-10.2); Hemolysis Index 6
[2021-11-22 09:43] LABS: Amphetamine Screen,Urine Negative; Benzodiazepines Screen,Urine Negative; Cannabinoid Screen,Urine Negative; Cocaine Screen,Urine Negative; Methadone Screen,Urine Negative; Opiate Screen,Urine Negative
[2021-11-22 09:47] LABS: BUN/Creatinine Ratio 13
[2021-11-22] MEDS ORDERED: SODIUM CHLORIDE 0.9% 1000 ML 1,000 ML IV ONE ×2 (11:01→11:02)
[2021-11-22] MEDS ORDERED: INSULIN REGULAR, HUMAN 100 UNITS/1 ML IV ONE (11:03)
--- NOTE | 2021-11-22 11:39 | Emergency Department Report ---
ED General Adult HPI - General Chief complaint: Weakness Stated complaint: OPIOD WITHDRAWAL/DIABETES Source: patient Mode of arrival: Ambulatory Limitations: No Limitations - History of Present Illness Initial comments: Patient is a 21-year-old -[place] male with a history of insulin- dependent diabetes and who is noncompliant with his medications presents to the ED with complaint of acute onset persistent lightheadedness and generalized weakness for the last 1 week. Patient states that he ran out of his insulin regimen and has not taken this medication for over 1 week. Patient was complains of persistent bilateral tingling sensation of his feet due to chronic diabetic neuropathy. Patient denies dizziness, syncope, chest pain, shortness of breath, nausea and vomiting, headache, change in vision, cough, sore throat, abdominal pain, diarrhea, dysuria, urinary frequency and urgency, fever and chills or headache. MD Complaint: Lightheadedness, generalized weakness, -: week(s) (1) Location: head Radiation: non-radiation Severity scale (0 -10): 2 Quality: dull Consistency: intermittent Improves with: none Worsens with: none Associated Symptoms: denies other symptoms, loss of appetite, malaise. denies: confusion, chest pain, diaphoresis, fever/chills, headaches, nausea/vomiting, rash, seizure, shortness of breath, syncope, weakness Treatments Prior to Arrival: none - Related Data Previous Rx's Medication Instructions Recorded Last Taken Type Ibuprofen [Motrin 800 MG tab] 800 mg PO Q8HR PRN #9 tablet 08/16/21 Unknown Rx Losartan [Cozaar] 50 mg PO QDAY #30 tablet 08/16/21 Unknown Rx traMADoL [Ultram 50 MG tab] 50 mg PO Q6HR PRN #8 tablet 08/16/21 Unknown Rx Gabapentin 300 mg PO BID #60 cap 11/22/21 Unknown Rx Ibuprofen [Motrin 600 MG tab] 600 mg PO Q8H PRN #30 tablet 11/22/21 Unknown Rx Insulin Aspart Prot/Insuln Asp 100 unit SQ ACHS #1 vial 11/22/21 Unknown Rx [Insulin Aspart Pro [id number] Vl] Insulin Glargine [Lantus VIAL] 10 units SUB-Q BID #2 vial 11/22/21 Unknown Rx Allergies Allergy/AdvReac Type Severity Reaction Status Date / Time No Known Allergies Allergy Verified 11/22/21 09:25 ED Review of Systems ROS: Stated complaint: OPIOD WITHDRAWAL/DIABETES Other details as noted in HPI Constitutional: malaise, weakness. denies: chills, fever Eyes: denies: eye pain, eye discharge, vision change ENT: denies: ear pain, throat pain Respiratory: denies: cough, shortness of breath, wheezing Cardiovascular: denies: chest pain, palpitations Endocrine: no symptoms reported Gastrointestinal: denies: abdominal pain, nausea, vomiting, diarrhea Genitourinary: denies: urgency, dysuria Musculoskeletal: denies: back pain, joint swelling, arthralgia Skin: denies: rash, lesions Neurological: denies: headache, weakness, paresthesias Psychiatric: denies: anxiety, depression Hematological/Lymphatic: denies: easy bleeding, easy bruising ED Past Medical Hx - Past Medical History Hx Hypertension: No Hx Heart Attack/AMI: No Hx Congestive Heart Failure: No Hx Diabetes: Yes Hx Liver Disease: No Hx Renal Disease: No Hx Asthma: No Hx COPD: No Hx HIV: No - Social History Smoking Status: Never Smoker - Medications Home Medications: Home Medications Medication Instructions Recorded Confirmed Last Taken Type Ibuprofen [Motrin 800 MG tab] 800 mg PO Q8HR PRN #9 tablet 08/16/21 Unknown Rx Losartan [Cozaar] 50 mg PO QDAY #30 tablet 08/16/21 Unknown Rx traMADoL [Ultram 50 MG tab] 50 mg PO Q6HR PRN #8 tablet 08/16/21 Unknown Rx Gabapentin 300 mg PO BID #60 cap 11/22/21 Unknown Rx Ibuprofen [Motrin 600 MG tab] 600 mg PO Q8H PRN #30 tablet 11/22/21 Unknown Rx Insulin Aspart Prot/Insuln Asp 100 unit SQ ACHS #1 vial 11/22/21 Unknown Rx [Insulin Aspart Pro [id number] Vl] Insulin Glargine [Lantus VIAL] 10 units SUB-Q BID #2 vial 11/22/21 Unknown Rx ED Physical Exam - General Limitations: No Limitations General appearance: alert, in no apparent distress - Head Head exam: Present: atraumatic, normocephalic, normal inspection - Eye Eye exam: Present: normal appearance, PERRL, EOMI Pupils: Present: normal accommodation - ENT ENT exam: Present: normal exam, normal orophraynx, mucous membranes moist, TM's normal bilaterally, normal external ear exam - Neck Neck exam: Present: normal inspection, full ROM - Respiratory Respiratory exam: Present: normal lung sounds bilaterally. Absent: respiratory distress, wheezes, rales, rhonchi, chest wall tenderness, accessory muscle use, prolonged expiratory, other - Cardiovascular Cardiovascular Exam: Present: normal rhythm, tachycardia, normal heart sounds. Absent: systolic murmur, diastolic murmur, rubs, gallop - GI/Abdominal GI/Abdominal exam: Present: soft, normal bowel sounds. Absent: tenderness, guarding, rebound, hyperactive bowel sounds, mass - Extremities Exam Extremities exam: Present: normal inspection, full ROM, normal capillary refill - Back Exam Back exam: Present: normal inspection, full ROM. Absent: tenderness, CVA tenderness (R), CVA tenderness (L), muscle spasm, paraspinal tenderness, vertebral tenderness - Neurological Exam Neurological exam: Present: alert, oriented X3, CN II-XII intact, normal gait, reflexes normal - Psychiatric Psychiatric exam: Present: normal affect, normal mood - Skin Skin exam: Present: warm, dry, intact, normal color. Absent: rash ED Course Vital Signs 11/22/21 08:47 Temperature 99 F Pulse Rate 103 H Respiratory 16 Rate Blood Pressure 153/92 [Left] O2 Sat by Pulse 99 Oximetry ED Medical Decision Making - Lab Data Result diagrams: 11/22/21 09:00 11/22/21 09:00 - Medical Decision Making This is a 21-year-old -[place] male with a history of insulin-dependent diabetes and who is noncompliant with his medications presents to the ED with complaint of acute onset persistent lightheadedness and generalized weakness for the last 1 week. Patient states that he ran out of his insulin regimen and has not taken this medication for over 1 week. Patient was complains of persistent bilateral tingling sensation of his feet due to chronic diabetic neuropathy. In the ED, patient is alert and oriented x3 and is not in any distress. Patient is hemodynamically stable. Lab test results were reviewed and are all nonactionable except for hyperglycemia of 408 mg/dL. Patient was treated in the ED for pain, also given insulin 8 units IV x1 and 2 L of normal saline IV x1. On reevaluation, patient's [id number] serum glucose after the administration of these medications was 244 mg/dL. Patient was discharged home on a prescription of his insulin and gabapentin prescription for diabetic neuropathy and was advised to follow-up with his primary care physician in 7 to 10 days for reevaluation or return to the ED immediately if symptoms get worse. - Differential Diagnosis DKA; hyperglycemia; dehydration; diabetic neuropathy Critical care attestation.: If time is entered above; I have spent that time in minutes in the direct care of this critically ill patient, excluding procedure time. ED Disposition Clinical Impression: Generalized weakness, Hyperglycemia due to type 1 diabetes mellitus, Noncompliance with medication regimen Disposition: HOME / SELF CARE / HOMELESS Is pt being admited?: No Does the pt Need Aspirin: No Condition: Stable Instructions: Insulin Treatment for Diabetes Mellitus, Hyperglycemia, [id number], Type 1 Diabetes Mellitus, Self Care, Adult, Type 1 Diabetes Mellitus, Self Care, Adult, [id number], Diabetes Mellitus Type 2 in Adults (ED) Additional Instructions: All lab test results were reviewed and are all nonactionable except for hyperglycemia due to noncompliance with insulin regimen. Therefore take your insulin, drink plenty of fluids, follow-up with your primary care physician in 7 to 10 days for reevaluation. Return to the ED immediately if symptoms get wo rse. Prescriptions: Gabapentin 300 mg PO BID #60 cap Insulin Aspart Prot/Insuln Asp [Insulin Aspart Pro [id number] Vl] 100 unit SQ ACHS #1 vial Insulin Glargine [Lantus VIAL] 10 units SUB-Q BID #2 vial Ibuprofen [Motrin 600 MG tab] 600 mg PO Q8H PRN #30 tablet PRN Reason: Pain Referrals: [facility] [Provider Group] - 7-10 days Time of Disposition: 11:40 Print Language: HUNGARIAN
[2021-11-22] MEDS ORDERED: KETOROLAC 30 MG/1 ML INJ IV ONE (11:53)
[2021-11-22] MEDS ORDERED: ONDANSETRON 4 MG/2 ML INJ IV ONE (11:53)
[2021-11-22] MEDS ORDERED: FAMOTIDINE 20 MG/2 ML INJ IV ONE (11:53)
== END 2021-11-22 15:10 | disposition home or self-care (01) ==
LOC: ED 08:30
DX: R42 Dizziness and giddiness (principal); R53.1 Weakness; E10.65 Type 1 diabetes mellitus with hyperglycemia; Z91.14 Patient's other noncompliance with medication regimen; Z79.899 Other long term (current) drug therapy
CPT/HCPCS: 36415; 80048; 80307; 85025; 96361; 96374; 96375; 99283; J1885; J2405; J3490; J7030; 80320; Q9967; G0480; J1815